=== PATIENT | female | born 1955 | race Caucasian/White ===

== ENCOUNTER 2021-03-07 11:05 | Inpatient (IN) ==
[2021-03-07] MEDS ORDERED: Naloxone 0.4 MG/ML INJ IVP PRN (16:21)
[2021-03-07] MEDS ORDERED: Dextrose Gel 15 GM/37.5 ML TUBE PO PRN ×2 (16:59)
[2021-03-07] MEDS ORDERED: *HR* Dextrose 50 % in Water (Vial) 50 ML VIAL IVP PRN (16:59)
[2021-03-07] MEDS ORDERED: D5% in Water 1,000 ML IVC PRN (16:59)
[2021-03-07] MEDS: Insulin LISPRO 300 UNITS/3 ML VIAL SUBQ SCH ×2 (17:45→21:15)
[2021-03-07] MEDS ORDERED: Fluticasone Propionate Nasal 50 MCG/SPRAY BOTTLE NS PRN (18:13)
[2021-03-07 18:36] LABS: Estimated Average Glucose 180 mg/dl; Hemoglobin A1C 7.9 %
[2021-03-07] MEDS: Azithromycin 250 MG TABLET PO SCH (18:43)
[2021-03-07] MEDS: *HR* Heparin 5,000 UNIT/ML VIAL SQ SCH (18:44)
[2021-03-07] MEDS: Nicotine 21 MG PATCH.TD24 TD SCH (18:44)
[2021-03-07] MEDS: Ipratropium/Albuterol Neb 3 ML IH SCH ×2 (19:26→23:10)
[2021-03-08 01:36] LABS: Basophils % 0.1 %; Hematocrit 38.1 % (35.3-44.9); Hemoglobin 11.6 g/dL (11.5-15.4); Immature Granulocytes % 1.2 % (0-4); Lymphocytes # 1.1 K/mcL (0.6-4.6); Lymphocytes % 6.6 %; Mean Corpuscular HGB Conc 30.4 g/dL (31.6-35.5); Mean Corpuscular Hemoglobin 27.5 pg (28.0-33.3); Mean Corpuscular Volume 90.3 fL (83.0-100.0); Mean Platelet Volume 11.8 fL (9.4-12.4); Monocytes # 1.3 K/mcL (0.0-1.3); Monocytes % 7.6 %; Neutrophils # 14.5 K/mcL (1.6-8.9); Platelet Count 249 K/mcL (140-400); Red Blood Count 4.22 M/mcL (3.82-4.97); Red Cell Distribution Width 14.8 % (11.5-14.5); Segmented Neutrophils % 84.5 %; White Blood Count 17.1 K/mcL (4.3-11.1)
[2021-03-08 01:55] LABS: Calcium 9.2 mg/dL (8.6-10.3); Potassium 5.7 mEq/L (3.5-5.1)
[2021-03-08] MEDS: Ipratropium/Albuterol Neb 3 ML IH SCH ×5 (03:40→23:28)
[2021-03-08] MEDS: *HR* Heparin 5,000 UNIT/ML VIAL SQ SCH ×2 (06:42→17:01)
[2021-03-08] MEDS ORDERED: Furosemide 40 MG/4 ML VIAL IVP ONE (08:17)
[2021-03-08] MEDS ORDERED: Furosemide 20 MG/2 ML VIAL IVP ONE (08:30)
[2021-03-08] MEDS: ARIPiprazole 10 MG TABLET PO SCH (08:33)
[2021-03-08] MEDS: predniSONE 20 MG TABLET PO SCH (08:34)
[2021-03-08] MEDS: Aspirin Enteric Coated 81 MG Tablet PO SCH (08:34)
[2021-03-08] MEDS: Azithromycin 250 MG TABLET PO SCH (08:34)
[2021-03-08] MEDS: atenoloL 50 MG TABLET PO SCH (08:34)
[2021-03-08] MEDS: Insulin LISPRO 300 UNITS/3 ML VIAL SUBQ SCH ×4 (08:35→19:59)
[2021-03-08] MEDS: Nicotine 21 MG PATCH.TD24 TD SCH (08:35)
[2021-03-08 08:37] LABS: Albumin 3.9 g/dL (3.5-5.7); Albumin/Globulin Ratio 1.3 (1.1-2.2); Bilirubin,Direct 0.1 mg/dL (0.0-0.2); Bilirubin,Indirect 0.4 mg/dL (0.0-1.0); Bilirubin,Total 0.5 mg/dL (0.3-1.0); Globulin 3.1 g/dL (2.4-3.5)
[2021-03-08] MEDS: (Vilazodone Hcl [Viibryd] 40 MG Tablet) PO SCH (08:43)
[2021-03-08 11:42] LABS: ABG Base Excess 10 mEq/L (-2 to 3); ABG HCO3 42 mEq/L (21-27); ABG Oxygen Saturation 91 % (95-98); ABG PCO2 95 mmHg (35-45); ABG PH 7.25 pH Units (7.32-7.45); ABG PO2 75 mmHg (85-104); ABG TCO2 45 mEq/L (20-26)
[2021-03-08] MEDS: SODIUM ZIRCONIUM CYCLOSILICATE 5 GM POWD.PACK PO SCH (11:57)
[2021-03-08 15:00] LABS: ABG Base Excess 11 mEq/L (-2 to 3); ABG HCO3 41 mEq/L (21-27); ABG Oxygen Saturation 95 % (95-98); ABG PCO2 83 mmHg (35-45); ABG PO2 88 mmHg (85-104); ABG TCO2 43 mEq/L (20-26); Blood Gas Modality BiLevel; Blood Gas Pressure Support 4 cm H2O
[2021-03-08] MEDS: amLODIPine 5 MG TABLET PO SCH (15:50)
[2021-03-08 17:59] LABS: Bilirubin,Urine Negative (Negative); Blood,Urine Negative (Negative); Clarity,Urine Clear (Clear); Color,Urine Light-Yellow (Yellow); Glucose,Urine (UA) Normal (Normal); Ketones,Urine Negative (Negative); Leukocyte Esterase,Urine Negative (Negative); Nitrite,Urine Negative (Negative); Protein,Urine 30 mg/dL (Neg-Trace); RBC,Urine 0-3 per hpf (0-3); Specific Gravity,Urine 1.017 (1.010-1.025); Squamous Epithelial Cell,Urine Few per hpf (None-Few); Urobilinogen,Urine Normal (Normal); WBC,Urine 0-3 per hpf (0-3)
[2021-03-09 02:46] LABS: Basophils % 0.1 %; Hematocrit 34.3 % (35.3-44.9); Hemoglobin 10.7 g/dL (11.5-15.4); Immature Granulocytes % 0.7 % (0-4); Lymphocytes # 1.3 K/mcL (0.6-4.6); Lymphocytes % 12.1 %; Mean Corpuscular HGB Conc 31.2 g/dL (31.6-35.5); Mean Corpuscular Hemoglobin 27.4 pg (28.0-33.3); Mean Corpuscular Volume 87.7 fL (83.0-100.0); Mean Platelet Volume 11.9 fL (9.4-12.4); Monocytes % 9.5 %; Neutrophils # 8.3 K/mcL (1.6-8.9); Platelet Count 206 K/mcL (140-400); Red Blood Count 3.91 M/mcL (3.82-4.97); Red Cell Distribution Width 14.7 % (11.5-14.5); Segmented Neutrophils % 77.6 %; White Blood Count 10.7 K/mcL (4.3-11.1)
[2021-03-09 03:05] LABS: Uric Acid 10.2 mg/dL (2.3-7.6)
[2021-03-09 03:06] LABS: Potassium 5.2 mEq/L (3.5-5.1)
[2021-03-09 03:20] LABS: Thyroid Stimulating Hormone 0.818 mcIU/mL (0.340-5.600)
[2021-03-09] MEDS: Ipratropium/Albuterol Neb 3 ML IH SCH ×6 (03:31→23:28)
[2021-03-09 03:32] LABS: Hepatitis B Surface Antigen Nonreactive (Nonreactive)
[2021-03-09 04:00] LABS: Hepatitis C Virus Antibody Nonreactive (Nonreactive)
[2021-03-09 04:01] LABS: Hepatitis B Core IgM Nonreactive (Nonreactive)
[2021-03-09 04:02] LABS: Hepatitis A Antibody IgM Nonreactive (Nonreactive)
[2021-03-09] MEDS: *HR* Heparin 5,000 UNIT/ML VIAL SQ SCH ×2 (05:22→16:49)
[2021-03-09] MEDS: Insulin LISPRO 300 UNITS/3 ML VIAL SUBQ SCH ×4 (07:02→21:02)
[2021-03-09] MEDS: Nicotine 21 MG PATCH.TD24 TD SCH (07:36)
[2021-03-09] MEDS: SODIUM ZIRCONIUM CYCLOSILICATE 5 GM POWD.PACK PO SCH (07:36)
[2021-03-09] MEDS: Aspirin Enteric Coated 81 MG Tablet PO SCH (07:37)
[2021-03-09] MEDS: Azithromycin 250 MG TABLET PO SCH (07:37)
[2021-03-09] MEDS: amLODIPine 5 MG TABLET PO SCH (07:37)
[2021-03-09] MEDS: ARIPiprazole 10 MG TABLET PO SCH (07:37)
[2021-03-09] MEDS: predniSONE 20 MG TABLET PO SCH (07:38)
[2021-03-09] MEDS: atenoloL 50 MG TABLET PO SCH (07:38)
[2021-03-09] MEDS: (Vilazodone Hcl [Viibryd] 40 MG Tablet) PO SCH (07:39)
[2021-03-09 08:29] LABS: ABG Base Excess 13 mEq/L (-2 to 3); ABG HCO3 44 mEq/L (21-27); ABG Oxygen Saturation 92 % (95-98); ABG PCO2 92 mmHg (35-45); ABG PH 7.28 pH Units (7.32-7.45); ABG PO2 77 mmHg (85-104); ABG TCO2 46 mEq/L (20-26)
[2021-03-09 12:01] LABS: ABG Base Excess 14 mEq/L (-2 to 3); ABG HCO3 43 mEq/L (21-27); ABG Oxygen Saturation 94 % (95-98); ABG PCO2 76 mmHg (35-45); ABG PH 7.36 pH Units (7.32-7.45); ABG PO2 76 mmHg (85-104); ABG TCO2 45 mEq/L (20-26); Blood Gas Modality AVAPS; Blood Gas VT 500 cc
[2021-03-09] MEDS: Benzonatate 100 MG CAPSULE PO PRN (20:47)
[2021-03-10 01:44] LABS: Basophils % 0.1 %; Eosinophils % 0.1 %; Hemoglobin 10.7 g/dL (11.5-15.4); Immature Granulocytes % 0.5 % (0-4); Lymphocytes # 1.3 K/mcL (0.6-4.6); Lymphocytes % 13.8 %; Mean Corpuscular HGB Conc 31.5 g/dL (31.6-35.5); Mean Corpuscular Hemoglobin 27.4 pg (28.0-33.3); Monocytes # 1.3 K/mcL (0.0-1.3); Monocytes % 13.1 %; Neutrophils # 6.9 K/mcL (1.6-8.9); Platelet Count 193 K/mcL (140-400); Red Blood Count 3.91 M/mcL (3.82-4.97); Red Cell Distribution Width 14.4 % (11.5-14.5); Segmented Neutrophils % 72.4 %; White Blood Count 9.5 K/mcL (4.3-11.1)
[2021-03-10 02:04] LABS: Potassium 4.7 mEq/L (3.5-5.1)
[2021-03-10] MEDS: Ipratropium/Albuterol Neb 3 ML IH SCH ×6 (03:43→23:48)
[2021-03-10] MEDS: *HR* Heparin 5,000 UNIT/ML VIAL SQ SCH ×2 (05:16→16:37)
[2021-03-10] MEDS: Insulin LISPRO 300 UNITS/3 ML VIAL SUBQ SCH ×4 (08:00→21:29)
[2021-03-10] MEDS: Aspirin Enteric Coated 81 MG Tablet PO SCH (08:01)
[2021-03-10] MEDS: predniSONE 20 MG TABLET PO SCH (08:01)
[2021-03-10] MEDS: atenoloL 50 MG TABLET PO SCH (08:01)
[2021-03-10] MEDS: Furosemide 40 MG/4 ML VIAL IVP SCH (08:01)
[2021-03-10] MEDS: ARIPiprazole 10 MG TABLET PO SCH (08:01)
[2021-03-10] MEDS: amLODIPine 5 MG TABLET PO SCH (08:01)
[2021-03-10] MEDS: SODIUM ZIRCONIUM CYCLOSILICATE 5 GM POWD.PACK PO SCH (08:02)
[2021-03-10] MEDS: Nicotine 21 MG PATCH.TD24 TD SCH (08:04)
[2021-03-10] MEDS: (Vilazodone Hcl [Viibryd] 40 MG Tablet) PO SCH (08:04)
[2021-03-10 08:11] LABS: Protein/Creatinine Ratio,Urine 1.46 mg/mg (0.00-0.20); Sodium, Urine 104.7 mEq/L
[2021-03-10] MEDS: Valsartan 80 MG TABLET PO SCH (11:01)
[2021-03-10] MEDS: Benzonatate 100 MG CAPSULE PO PRN ×2 (17:34→21:29)
[2021-03-10] MEDS: Gabapentin 300 MG CAPSULE PO SCH (17:34)
[2021-03-11 02:45] LABS: Hematocrit 34.2 % (35.3-44.9); Hemoglobin 10.5 g/dL (11.5-15.4); Mean Corpuscular HGB Conc 30.7 g/dL (31.6-35.5); Mean Corpuscular Hemoglobin 26.6 pg (28.0-33.3); Mean Corpuscular Volume 86.6 fL (83.0-100.0); Mean Platelet Volume 11.8 fL (9.4-12.4); Platelet Count 193 K/mcL (140-400); Red Blood Count 3.95 M/mcL (3.82-4.97); Red Cell Distribution Width 14.1 % (11.5-14.5); White Blood Count 8.5 K/mcL (4.3-11.1)
[2021-03-11 03:10] LABS: BUN/Creatinine Ratio 29 (6-26); Blood Urea Nitrogen 32 mg/dL (8-23); Calcium 8.7 mg/dL (8.6-10.3); Carbon Dioxide 41 mEq/L (23-29); Chloride 90 mEq/L (98-107); Glucose 170 mg/dL (70-105); Osmolality,Calculated 291 (280-300); Potassium 4.5 mEq/L (3.5-5.1); Sodium 135 mEq/L (136-145); eGFR For African Americans > 60 (> 60); eGFR For Non-African Americans 51 (> 60)
[2021-03-11] MEDS: Ipratropium/Albuterol Neb 3 ML IH SCH ×5 (04:16→19:49)
[2021-03-11] MEDS ORDERED: Acetaminophen 325 MG TABLET PO PRN (05:14)
[2021-03-11] MEDS: *HR* Heparin 5,000 UNIT/ML VIAL SQ SCH ×2 (05:27→17:17)
[2021-03-11] MEDS: Insulin LISPRO 300 UNITS/3 ML VIAL SUBQ SCH ×4 (07:37→21:36)
[2021-03-11] MEDS: Nicotine 21 MG PATCH.TD24 TD SCH (08:07)
[2021-03-11] MEDS: Furosemide 40 MG/4 ML VIAL IVP SCH ×2 (08:08→21:45)
[2021-03-11] MEDS: Gabapentin 300 MG CAPSULE PO SCH (08:08)
[2021-03-11] MEDS: ARIPiprazole 10 MG TABLET PO SCH (08:08)
[2021-03-11] MEDS: Valsartan 80 MG TABLET PO SCH (08:08)
[2021-03-11] MEDS: Aspirin Enteric Coated 81 MG Tablet PO SCH (08:08)
[2021-03-11] MEDS: atenoloL 50 MG TABLET PO SCH (08:08)
[2021-03-11] MEDS: predniSONE 20 MG TABLET PO SCH (08:08)
[2021-03-11] MEDS: SODIUM ZIRCONIUM CYCLOSILICATE 5 GM POWD.PACK PO SCH (08:09)
[2021-03-11] MEDS: (Vilazodone Hcl [Viibryd] 40 MG Tablet) PO SCH (08:09)
[2021-03-11 11:06] LABS: ABG Base Excess 14 mEq/L (-2 to 3); ABG HCO3 43 mEq/L (21-27); ABG Oxygen Saturation 91 % (95-98); ABG PCO2 79 mmHg (35-45); ABG PH 7.35 pH Units (7.32-7.45); ABG PO2 69 mmHg (85-104); ABG TCO2 45 mEq/L (20-26)
[2021-03-11] MEDS ORDERED: Valsartan 80 MG TABLET PO ONE (12:50)
[2021-03-11 19:11] LABS: Lambda Qnt Free Light Chains 20.89 mg/L (5.71-26.30)
[2021-03-12] MEDS: Ipratropium/Albuterol Neb 3 ML IH SCH ×5 (00:02→16:00)
[2021-03-12 05:04] LABS: Alpha 2 Globulin (PEP) 0.77 g/dL (0.48-1.05); Beta Globulin (PEP) 0.73 g/dL (0.48-1.10)
[2021-03-12] MEDS: *HR* Heparin 5,000 UNIT/ML VIAL SQ SCH (05:29)
[2021-03-12 05:48] LABS: Hematocrit 35.3 % (35.3-44.9); Mean Corpuscular HGB Conc 31.2 g/dL (31.6-35.5); Mean Corpuscular Hemoglobin 26.8 pg (28.0-33.3); Mean Corpuscular Volume 85.9 fL (83.0-100.0); Platelet Count 199 K/mcL (140-400); Red Blood Count 4.11 M/mcL (3.82-4.97); White Blood Count 8.6 K/mcL (4.3-11.1)
[2021-03-12 06:52] LABS: BUN/Creatinine Ratio 25 (6-26); Blood Urea Nitrogen 27 mg/dL (8-23); Carbon Dioxide 44 mEq/L (23-29); Chloride 88 mEq/L (98-107); Glucose 121 mg/dL (70-105); Osmolality,Calculated 290 (280-300); Potassium 4.1 mEq/L (3.5-5.1); Sodium 137 mEq/L (136-145); eGFR For African Americans > 60 (> 60); eGFR For Non-African Americans 52 (> 60)
[2021-03-12] MEDS: Insulin LISPRO 300 UNITS/3 ML VIAL SUBQ SCH (08:16)
[2021-03-12] MEDS ORDERED: Valsartan 80 MG TABLET PO SCH (09:00)
[2021-03-12] MEDS: Nicotine 21 MG PATCH.TD24 TD SCH (09:30)
[2021-03-12] MEDS: ARIPiprazole 10 MG TABLET PO SCH (09:35)
[2021-03-12] MEDS: Gabapentin 300 MG CAPSULE PO SCH (09:36)
[2021-03-12] MEDS: Aspirin Enteric Coated 81 MG Tablet PO SCH (09:37)
[2021-03-12] MEDS: predniSONE 20 MG TABLET PO SCH (09:38)
[2021-03-12] MEDS: atenoloL 50 MG TABLET PO SCH (09:39)
[2021-03-12] MEDS: Furosemide 40 MG/4 ML VIAL IVP SCH (09:42)
[2021-03-12 09:44] LABS: Kappa Qnt Free Light Chains 31.03 mg/L (3.30-19.40)
[2021-03-12 09:49] LABS: IFE Reflexed NOT DONE
[2021-03-12 10:50] VITALS: BP 163/94
== END 2021-03-12 15:45 | disposition home health service (06) | DRG 682 ==
LOC: 2NENU → SUATTDRO 17:05
PROVIDERS: ADMIT Internal Medicine; ATTEND Family Medicine

== ENCOUNTER 2021-05-12 14:26 | Inpatient (IN) ==
[2021-05-13] MEDS ORDERED: Ondansetron 4 MG/2 ML VIAL IVP PRN (05:10)
[2021-05-13] MEDS ORDERED: Naloxone 0.4 MG/ML INJ IVP PRN (05:10)
[2021-05-13] MEDS ORDERED: Ipratropium/Albuterol Neb 3 ML IH PRN (05:15)
[2021-05-13] MEDS ORDERED: Dextrose Gel 15 GM/37.5 ML TUBE PO PRN ×2 (05:18)
[2021-05-13] MEDS ORDERED: D5% in Water 1,000 ML IVC PRN (05:18)
[2021-05-13] MEDS ORDERED: *HR* Dextrose 50 % in Water (Vial) 50 ML VIAL IVP PRN (05:18)
[2021-05-13 06:06] LABS: ABG Base Excess 8 mEq/L (-2 to 3); ABG HCO3 38 mEq/L (21-27); ABG Oxygen Saturation 93 % (95-98); ABG PCO2 85 mmHg (35-45); ABG PH 7.25 pH Units (7.32-7.45); ABG PO2 80 mmHg (85-104); ABG TCO2 40 mEq/L (20-26); Blood Gas Modality AVAPS; Blood Gas VT 500 cc
[2021-05-13 06:58] LABS: Basophils % 0.4 %; Eosinophils % 0.2 %; Red Cell Distribution Width 15.7 % (11.5-14.5); Segmented Neutrophils % 80.4 %
[2021-05-13 06:59] LABS: Hematocrit 35.6 % (35.3-44.9); Hemoglobin 9.7 g/dL (11.5-15.4); Lymphocytes # 0.8 K/mcL (0.6-4.6); Mean Corpuscular HGB Conc 27.2 g/dL (31.6-35.5); Mean Corpuscular Hemoglobin 27.6 pg (28.0-33.3); Mean Corpuscular Volume 101.4 fL (83.0-100.0); Mean Platelet Volume 12.9 fL (9.4-12.4); Monocytes # 0.7 K/mcL (0.0-1.3); Neutrophils # 6.8 K/mcL (1.6-8.9); Platelet Count 147 K/mcL (140-400); Red Blood Count 3.51 M/mcL (3.82-4.97); White Blood Count 8.4 K/mcL (4.3-11.1)
[2021-05-13 07:12] LABS: Calcium 8.7 mg/dL (8.6-10.3); Potassium 5.9 mEq/L (3.5-5.1)
[2021-05-13 07:17] LABS: Troponin I 0.16 ng/mL (< 0.04)
[2021-05-13 07:35] LABS: Magnesium 1.4 mg/dL (1.6-2.6)
[2021-05-13] MEDS: *HR* Heparin 5,000 UNIT/ML VIAL SQ SCH ×3 (08:00→21:27)
[2021-05-13] MEDS ORDERED: Calcium Gluconate 1gm/50mL 1 GM/50 ML BAG IVPB ONE (09:24)
[2021-05-13] MEDS: Insulin LISPRO 300 UNITS/3 ML VIAL SUBQ SCH ×3 (09:39→17:34)
[2021-05-13 10:39] LABS: Troponin I 0.18 ng/mL (< 0.04)
[2021-05-13 11:02] LABS: Uric Acid 10.7 mg/dL (2.3-7.6)
[2021-05-13 12:01] LABS: Calcium 8.7 mg/dL (8.6-10.3); Potassium 5.8 mEq/L (3.5-5.1)
[2021-05-13 12:23] LABS: Hepatitis B Surface Antigen Nonreactive (Nonreactive)
[2021-05-13] MEDS: D10% in Water 500 ML IVC SCH (12:31)
[2021-05-13] MEDS ORDERED: Furosemide 40 MG/4 ML VIAL IVP ONE ×3 (12:34→17:18)
[2021-05-13] MEDS ORDERED: Albumin 25% 25gram/100mL 25 GM/100 ML IV.SOLN IVPB ONE (12:34)
[2021-05-13 12:52] LABS: Hepatitis C Virus Antibody Nonreactive (Nonreactive)
[2021-05-13 12:53] LABS: Hepatitis A Antibody IgM Nonreactive (Nonreactive); Hepatitis B Core IgM Nonreactive (Nonreactive)
[2021-05-13 13:35] LABS: Sodium, Urine 14.3 mEq/L
[2021-05-13 15:31] LABS: Calcium 8.8 mg/dL (8.6-10.3); Potassium 5.4 mEq/L (3.5-5.1)
[2021-05-13] MEDS: predniSONE 20 MG TABLET PO SCH (17:51)
[2021-05-13] MEDS: SODIUM ZIRCONIUM CYCLOSILICATE 5 GM POWD.PACK PO SCH (17:51)
[2021-05-13] MEDS: Acetaminophen 325 MG TABLET PO PRN (22:09)
[2021-05-13 23:00] LABS: Calcium 8.8 mg/dL (8.6-10.3); Potassium 5.9 mEq/L (3.5-5.1)
[2021-05-13 23:05] LABS: Troponin I 0.19 ng/mL (< 0.04)
[2021-05-14] MEDS: Insulin LISPRO 300 UNITS/3 ML VIAL SUBQ SCH ×4 (00:50→18:33)
[2021-05-14 02:22] LABS: Red Cell Distribution Width 15.4 % (11.5-14.5)
[2021-05-14 02:23] LABS: Hematocrit 31.4 % (35.3-44.9); Hemoglobin 9.3 g/dL (11.5-15.4); Mean Corpuscular HGB Conc 29.6 g/dL (31.6-35.5); Mean Corpuscular Hemoglobin 28.4 pg (28.0-33.3); Mean Platelet Volume 12.8 fL (9.4-12.4); Platelet Count 152 K/mcL (140-400); Red Blood Count 3.27 M/mcL (3.82-4.97); White Blood Count 9.7 K/mcL (4.3-11.1)
[2021-05-14 02:40] LABS: Calcium 8.8 mg/dL (8.6-10.3); Potassium 5.9 mEq/L (3.5-5.1)
[2021-05-14] MEDS: *HR* Heparin 5,000 UNIT/ML VIAL SQ SCH ×2 (06:04→13:19)
[2021-05-14] MEDS: SODIUM ZIRCONIUM CYCLOSILICATE 5 GM POWD.PACK PO SCH (08:01)
[2021-05-14] MEDS: predniSONE 20 MG TABLET PO SCH (08:01)
[2021-05-14] MEDS ORDERED: *HR* Heparin 10,000 UNIT/10 ML VIAL IV PRN (09:37)
[2021-05-14] MEDS ORDERED: 0.9 % Sodium Chloride 250 ML IVC PRN ×2 (09:37→14:42)
[2021-05-14] MEDS ORDERED: 0.9 % Sodium Chloride 1,000 ML PRIME SCH (09:45)
[2021-05-14 11:07] LABS: INR 1.2; Prothrombin Time 13.9 Seconds (9.4-12.1)
[2021-05-14] MEDS ORDERED: Lidocaine 1% 0 ML ONE (11:22)
[2021-05-14] MEDS: D10% in Water 500 ML IVC SCH ×3 (13:17→15:06)
[2021-05-14 17:43] LABS: ABG Base Excess 10 mEq/L (-2 to 3); ABG HCO3 36 mEq/L (21-27); ABG Oxygen Saturation 92 % (95-98); ABG PCO2 56 mmHg (35-45); ABG PH 7.42 pH Units (7.32-7.45); ABG PO2 63 mmHg (85-104); ABG TCO2 38 mEq/L (20-26)
[2021-05-14] MEDS ORDERED: Haloperidol Lactate 5 MG/ML VIAL IVP PRN (23:37)
[2021-05-15] MEDS: *HR* Heparin 5,000 UNIT/ML VIAL SQ SCH ×2 (00:10→05:27)
[2021-05-15] MEDS: Insulin LISPRO 300 UNITS/3 ML VIAL SUBQ SCH ×5 (00:29→20:33)
[2021-05-15 01:52] LABS: Calcium 9.1 mg/dL (8.6-10.3); Potassium 4.6 mEq/L (3.5-5.1)
[2021-05-15 02:00] LABS: Hematocrit 27.1 % (35.3-44.9); Mean Corpuscular HGB Conc 29.5 g/dL (31.6-35.5); Mean Corpuscular Hemoglobin 27.3 pg (28.0-33.3); Mean Corpuscular Volume 92.5 fL (83.0-100.0); Mean Platelet Volume 12.9 fL (9.4-12.4); Red Blood Count 2.93 M/mcL (3.82-4.97); White Blood Count 8.2 K/mcL (4.3-11.1)
[2021-05-15] MEDS: predniSONE 20 MG TABLET PO SCH (11:04)
[2021-05-15] MEDS: SODIUM ZIRCONIUM CYCLOSILICATE 5 GM POWD.PACK PO SCH (11:04)
[2021-05-15] MEDS ORDERED: Perflutren Lipid Microsphere 1.3 ML in 0.9 % Sodium Chloride 8.7 ML IVP PRN (11:29)
[2021-05-15] MEDS ORDERED: *HR* Heparin 10,000 UNIT/10 ML VIAL IV PRN (14:42)
[2021-05-15] MEDS ORDERED: 0.9 % Sodium Chloride 1,000 ML PRIME SCH (14:45)
[2021-05-15 21:58] LABS: Lambda Qnt Free Light Chains 40.85 mg/L (5.71-26.30)
[2021-05-15] MEDS ORDERED: Ipratropium/Albuterol Neb 3 ML IH PRN (23:13)
[2021-05-16 02:08] LABS: Hemoglobin 8.4 g/dL (11.5-15.4); Mean Corpuscular Hemoglobin 27.6 pg (28.0-33.3); Mean Corpuscular Volume 92.1 fL (83.0-100.0); Mean Platelet Volume 12.4 fL (9.4-12.4); Platelet Count 161 K/mcL (140-400); Red Blood Count 3.04 M/mcL (3.82-4.97); Red Cell Distribution Width 14.9 % (11.5-14.5)
[2021-05-16 02:28] LABS: % Iron Saturation 4 % (15-50); Calcium 8.9 mg/dL (8.6-10.3); Iron 13 mcg/dL (50-170); Potassium 4.5 mEq/L (3.5-5.1); Transferrin 211 mg/dL (203-362)
[2021-05-16] MEDS: Insulin LISPRO 300 UNITS/3 ML VIAL SUBQ SCH ×4 (07:24→21:07)
[2021-05-16] MEDS: atenoloL 50 MG TABLET PO SCH (07:42)
[2021-05-16] MEDS: SODIUM ZIRCONIUM CYCLOSILICATE 5 GM POWD.PACK PO SCH (07:43)
[2021-05-16] MEDS: ARIPiprazole 10 MG TABLET PO SCH (07:43)
[2021-05-16] MEDS: Aspirin Enteric Coated 81 MG Tablet PO SCH (07:43)
[2021-05-16] MEDS: hydrALAZINE 25 MG TABLET PO SCH ×3 (07:43→21:14)
[2021-05-16] MEDS ORDERED: Valsartan 80 MG TABLET PO SCH (09:00)
[2021-05-16 11:28] LABS: Kappa Qnt Free Light Chains 101.37 mg/L (3.30-19.40)
[2021-05-16] MEDS ORDERED: Ferumoxytol 510 MG in 0.9 % Sodium Chloride 100 ML IVPB ONE (12:34)
[2021-05-16] MEDS: Gabapentin 300 MG CAPSULE PO SCH ×2 (13:13→21:04)
[2021-05-17 01:34] LABS: Alpha 2 Globulin (PEP) 0.86 g/dL (0.48-1.05); Beta Globulin (PEP) 0.84 g/dL (0.48-1.10)
[2021-05-17 02:19] LABS: Eosinophils % 0.3 %; Immature Granulocytes % 0.3 % (0-4)
[2021-05-17 02:21] LABS: Basophils % 0.5 %; Hematocrit 30.3 % (35.3-44.9); Hemoglobin 9.1 g/dL (11.5-15.4); Lymphocytes # 1.2 K/mcL (0.6-4.6); Lymphocytes % 18.6 %; Mean Corpuscular Volume 93.2 fL (83.0-100.0); Mean Platelet Volume 12.3 fL (9.4-12.4); Monocytes # 0.9 K/mcL (0.0-1.3); Monocytes % 14.4 %; Neutrophils # 4.2 K/mcL (1.6-8.9); Platelet Count 160 K/mcL (140-400); Red Blood Count 3.25 M/mcL (3.82-4.97); Segmented Neutrophils % 65.9 %; White Blood Count 6.4 K/mcL (4.3-11.1)
[2021-05-17 02:35] LABS: Calcium 8.9 mg/dL (8.6-10.3); Potassium 4.3 mEq/L (3.5-5.1)
[2021-05-17] MEDS: Insulin LISPRO 300 UNITS/3 ML VIAL SUBQ SCH ×4 (07:54→21:39)
[2021-05-17] MEDS: Aspirin Enteric Coated 81 MG Tablet PO SCH (08:23)
[2021-05-17] MEDS: SODIUM ZIRCONIUM CYCLOSILICATE 5 GM POWD.PACK PO SCH (08:23)
[2021-05-17] MEDS: hydrALAZINE 25 MG TABLET PO SCH ×3 (08:23→21:13)
[2021-05-17] MEDS: ARIPiprazole 10 MG TABLET PO SCH (08:23)
[2021-05-17] MEDS: atenoloL 50 MG TABLET PO SCH (08:23)
[2021-05-17] MEDS: Gabapentin 300 MG CAPSULE PO SCH ×2 (08:23→21:12)
[2021-05-17 11:09] LABS: IFE Reflexed NOT DONE
[2021-05-17] MEDS: Acetaminophen 325 MG TABLET PO PRN (21:12)
[2021-05-18 05:17] LABS: Basophils % 0.4 %; Eosinophils % 0.7 %; Hematocrit 28.7 % (35.3-44.9); Hemoglobin 8.6 g/dL (11.5-15.4); Immature Granulocytes % 0.5 % (0-4); Lymphocytes % 18.6 %; Mean Corpuscular Hemoglobin 27.9 pg (28.0-33.3); Mean Corpuscular Volume 93.2 fL (83.0-100.0); Monocytes # 0.7 K/mcL (0.0-1.3); Monocytes % 12.8 %; Neutrophils # 3.7 K/mcL (1.6-8.9); Platelet Count 152 K/mcL (140-400); Red Blood Count 3.08 M/mcL (3.82-4.97); Red Cell Distribution Width 14.9 % (11.5-14.5); White Blood Count 5.5 K/mcL (4.3-11.1)
[2021-05-18 05:31] LABS: Potassium 4.5 mEq/L (3.5-5.1)
[2021-05-18] MEDS: Insulin LISPRO 300 UNITS/3 ML VIAL SUBQ SCH ×4 (08:28→20:28)
[2021-05-18] MEDS: atenoloL 50 MG TABLET PO SCH (09:18)
[2021-05-18] MEDS: SODIUM ZIRCONIUM CYCLOSILICATE 5 GM POWD.PACK PO SCH (09:18)
[2021-05-18] MEDS: Gabapentin 300 MG CAPSULE PO SCH ×2 (09:18→20:25)
[2021-05-18] MEDS: Aspirin Enteric Coated 81 MG Tablet PO SCH (09:18)
[2021-05-18] MEDS: hydrALAZINE 25 MG TABLET PO SCH ×3 (09:18→20:29)
[2021-05-18] MEDS: ARIPiprazole 10 MG TABLET PO SCH (09:18)
[2021-05-18] MEDS: Nicotine 21 MG PATCH.TD24 TD SCH (12:37)
[2021-05-18] MEDS: *HR* Heparin 5,000 UNIT/ML VIAL SQ SCH ×2 (16:25→20:24)
[2021-05-19] MEDS: *HR* Heparin 5,000 UNIT/ML VIAL SQ SCH (05:07)
[2021-05-19 06:25] LABS: Basophils % 0.3 %; Eosinophils % 1.2 %; Immature Granulocytes % 0.7 % (0-4); Red Blood Count 3.17 M/mcL (3.82-4.97)
[2021-05-19 06:26] LABS: Eosinophils # 0.1 K/mcL (0.0-0.6); Hemoglobin 8.9 g/dL (11.5-15.4); Lymphocytes # 1.1 K/mcL (0.6-4.6); Lymphocytes % 19.1 %; Mean Corpuscular HGB Conc 29.7 g/dL (31.6-35.5); Mean Corpuscular Hemoglobin 28.1 pg (28.0-33.3); Mean Corpuscular Volume 94.6 fL (83.0-100.0); Mean Platelet Volume 12.3 fL (9.4-12.4); Monocytes # 0.7 K/mcL (0.0-1.3); Monocytes % 11.2 %; Neutrophils # 3.9 K/mcL (1.6-8.9); Platelet Count 147 K/mcL (140-400); Segmented Neutrophils % 67.5 %; White Blood Count 5.8 K/mcL (4.3-11.1)
[2021-05-19 06:44] LABS: Calcium 9.1 mg/dL (8.6-10.3); Potassium 4.3 mEq/L (3.5-5.1)
[2021-05-19 07:26] VITALS: O2SAT 91
[2021-05-19] MEDS: atenoloL 50 MG TABLET PO SCH (09:30)
[2021-05-19] MEDS: ARIPiprazole 10 MG TABLET PO SCH (09:30)
[2021-05-19] MEDS: Nicotine 21 MG PATCH.TD24 TD SCH (09:30)
[2021-05-19] MEDS: Gabapentin 300 MG CAPSULE PO SCH (09:30)
[2021-05-19] MEDS: SODIUM ZIRCONIUM CYCLOSILICATE 5 GM POWD.PACK PO SCH (09:30)
[2021-05-19] MEDS: Aspirin Enteric Coated 81 MG Tablet PO SCH (09:30)
[2021-05-19] MEDS: hydrALAZINE 25 MG TABLET PO SCH ×2 (09:30→14:47)
[2021-05-19] MEDS: Insulin LISPRO 300 UNITS/3 ML VIAL SUBQ SCH ×2 (09:30→12:17)
[2021-05-19 12:04] VITALS: BP 131/68; PULSE 61; TEMP 98.5
[2021-05-19 12:11] LABS: Total Volume 24 Hour,Urine 1.24 Liters (0.60-1.60)
[2021-05-19 12:23] LABS: Protein/Creatinine Ratio,Urine 0.34 mg/mg (0.00-0.20); Sodium, Urine 10.3 mEq/L
[2021-05-21 19:59] LABS: Urine Collection Volume NOT PROVIDED mL
== END 2021-05-19 16:55 | disposition home or self-care (01) | DRG 280 ==
LOC: 2NNU → SUATTDRO 05-13 14:37 → 2ANU 05-16 13:26
PROVIDERS: ADMIT Pharmacist; ATTEND Internal Medicine

== ENCOUNTER 2021-05-26 19:46 | Inpatient (IN) ==
[2021-05-27] MEDS ORDERED: Naloxone 0.4 MG/ML INJ IVP PRN (02:43)
[2021-05-27] MEDS ORDERED: *HR* Dextrose 50 % in Water (Vial) 50 ML VIAL ONE (02:49)
[2021-05-27] MEDS ORDERED: FentaNYL (PF) 1,000 MCG/100 ML IV.SOLN IVC SCH (03:00)
[2021-05-27] MEDS: *HR* Dextrose 50 % in Water (Vial) 50 ML VIAL IVP PRN ×5 (03:00→23:40)
[2021-05-27] MEDS ORDERED: Artificial Tears SOLN 15 ML BOTTLE BOTH EYES PRN (03:12)
[2021-05-27] MEDS: Nystatin POWDER 30 GM BOTTLE TP SCH ×4 (03:12→22:11)
[2021-05-27] MEDS ORDERED: Dextrose Gel 15 GM/37.5 ML TUBE PO PRN ×2 (03:19)
[2021-05-27] MEDS ORDERED: D5% in Water 1,000 ML IVC PRN (03:19)
[2021-05-27 04:30] LABS: Basophils % 0.4 %; Eosinophils # 0.1 K/mcL (0.0-0.6); Eosinophils % 0.6 %; Hematocrit 31.6 % (35.3-44.9); Hemoglobin 9.5 g/dL (11.5-15.4); Immature Granulocytes % 1.5 % (0-4); Mean Corpuscular HGB Conc 30.1 g/dL (31.6-35.5); Mean Corpuscular Hemoglobin 28.4 pg (28.0-33.3); Mean Corpuscular Volume 94.6 fL (83.0-100.0); Mean Platelet Volume 12.7 fL (9.4-12.4); Monocytes # 0.9 K/mcL (0.0-1.3); Monocytes % 9.1 %; Neutrophils # 7.8 K/mcL (1.6-8.9); Nucleated Red Blood Cells 0.2 /100 WBC (0); Platelet Count 192 K/mcL (140-400); Red Blood Count 3.34 M/mcL (3.82-4.97); Red Cell Distribution Width 17.8 % (11.5-14.5); Segmented Neutrophils % 78.4 %; White Blood Count 9.9 K/mcL (4.3-11.1)
[2021-05-27 04:36] LABS: INR 1.2
[2021-05-27 04:40] LABS: VBG Ionized Calcium 1.19 mmol/L (1.15-1.35)
[2021-05-27 04:42] LABS: ABG Base Excess 5 mEq/L (-2 to 3); ABG HCO3 33 mEq/L (21-27); ABG Oxygen Saturation 92 % (95-98); ABG PCO2 63 mmHg (35-45); ABG PH 7.32 pH Units (7.32-7.45); ABG PO2 70 mmHg (85-104); ABG TCO2 35 mEq/L (20-26); Blood Gas VT 450 cc
[2021-05-27 04:49] LABS: Albumin 3.3 g/dL (3.5-5.7); Albumin/Globulin Ratio 1.2 (1.1-2.2); Bilirubin,Direct 0.1 mg/dL (0.0-0.2); Bilirubin,Indirect 0.7 mg/dL (0.0-1.0); Bilirubin,Total 0.8 mg/dL (0.3-1.0); Calcium 8.8 mg/dL (8.6-10.3); Globulin 2.7 g/dL (2.4-3.5); Magnesium 1.7 mg/dL (1.6-2.6); Phosphorous 4.7 mg/dL (2.7-4.5); Potassium 4.7 mEq/L (3.5-5.1)
[2021-05-27] MEDS: Artificial Tears SOLN 15 ML BOTTLE BOTH EYES SCH ×6 (05:07→23:40)
[2021-05-27] MEDS: FentaNYL (PF) 1,000 MCG/100 ML IV.SOLN IVC SCH ×2 (05:14→17:15)
[2021-05-27] MEDS ORDERED: Perflutren Lipid Microsphere 1.3 ML in 0.9 % Sodium Chloride 8.7 ML IVP PRN (05:57)
[2021-05-27] MEDS: *HR* Heparin 5,000 UNIT/ML VIAL SQ SCH ×3 (06:15→22:41)
[2021-05-27] MEDS ORDERED: Furosemide 40 MG/4 ML VIAL IVP ONE (06:20)
[2021-05-27] MEDS ORDERED: Calcium Gluconate 1gm/50mL 1 GM/50 ML BAG IVPB PRN (07:33)
[2021-05-27] MEDS: Piperacillin/Tazobactam 3.375 GM in 0.9 % Sodium Chloride Mini Bag 100 ML IVPB SCH ×3 (07:34→20:48)
[2021-05-27] MEDS: Chlorhexidine Rinse 15 ML MOUTHWASH MM SCH ×2 (07:34→19:45)
[2021-05-27] MEDS: Pantoprazole 40 MG VIAL IVP SCH (07:34)
[2021-05-27 08:44] LABS: Basophils % 0.3 %; Eosinophils % 0.3 %; Hematocrit 30.6 % (35.3-44.9); Hemoglobin 9.2 g/dL (11.5-15.4); Immature Granulocytes % 1.2 % (0-4); Lymphocytes # 0.7 K/mcL (0.6-4.6); Lymphocytes % 6.8 %; Mean Corpuscular HGB Conc 30.1 g/dL (31.6-35.5); Mean Corpuscular Hemoglobin 28.3 pg (28.0-33.3); Mean Corpuscular Volume 94.2 fL (83.0-100.0); Mean Platelet Volume 12.9 fL (9.4-12.4); Monocytes % 9.6 %; Neutrophils # 8.2 K/mcL (1.6-8.9); Nucleated Red Blood Cells 0.5 /100 WBC (0); Platelet Count 193 K/mcL (140-400); Red Blood Count 3.25 M/mcL (3.82-4.97); Segmented Neutrophils % 81.8 %; White Blood Count 10.1 K/mcL (4.3-11.1)
[2021-05-27 09:04] LABS: Calcium 8.6 mg/dL (8.6-10.3); Potassium 4.8 mEq/L (3.5-5.1)
[2021-05-27] MEDS ORDERED: 0.9 % Sodium Chloride 1,000 ML ONE (09:08)
[2021-05-27] MEDS ORDERED: Furosemide 80 MG in 0.9 % Sodium Chloride 50 ML IVPB ONE (12:50)
[2021-05-27 12:55] LABS: Amorphous Sediment,Urine Few per hpf (None-Few); Bacteria,Urine Few per hpf (None-Few); Bilirubin,Urine Negative (Negative); Blood,Urine Large (Negative); Clarity,Urine Turbid (Clear); Color,Urine Yellow (Yellow); Glucose,Urine (UA) Normal (Normal); Hyaline Casts,Urine Moderate per lpf (None Seen); Ketones,Urine Negative (Negative); Leukocyte Esterase,Urine Large (Negative); Mucus,Urine Few per lpf (None-Few); Nitrite,Urine Negative (Negative); PH,Urine 5.5 pH Units (5.0-8.0); Protein,Urine 70 mg/dL (Neg-Trace); RBC,Urine TNTC per hpf (0-3); Specific Gravity,Urine 1.022 (1.010-1.025); Squamous Epithelial Cell,Urine Few per hpf (None-Few); Urobilinogen,Urine Normal (Normal); WBC,Urine 30-50 per hpf (0-3)
[2021-05-27 15:53] LABS: Thyroid Stimulating Hormone 2.624 mcIU/mL (0.340-5.600); Troponin I 0.12 ng/mL (< 0.04)
[2021-05-27] MEDS: Insulin LISPRO 300 UNITS/3 ML VIAL SUBQ SCH (17:04)
[2021-05-27] MEDS ORDERED: Glucagon, Human Recombinant 12 MG in 0.9 % Sodium Chloride 238 ML IVC SCH (19:30)
[2021-05-27] MEDS: Scopolamine Patch 1.5 MG PATCH.TD72 TD SCH (23:40)
[2021-05-28] MEDS: Insulin LISPRO 300 UNITS/3 ML VIAL SUBQ SCH ×5 (00:05→23:15)
[2021-05-28] MEDS: FentaNYL (PF) 1,000 MCG/100 ML IV.SOLN IVC SCH ×4 (03:15→22:00)
[2021-05-28] MEDS: Artificial Tears SOLN 15 ML BOTTLE BOTH EYES SCH ×6 (03:27→23:12)
[2021-05-28] MEDS: *HR* Dextrose 50 % in Water (Vial) 50 ML VIAL IVP PRN ×2 (04:15→07:56)
[2021-05-28 04:21] LABS: VBG Ionized Calcium 1.16 mmol/L (1.15-1.35)
[2021-05-28 04:25] LABS: ABG Base Excess 5 mEq/L (-2 to 3); ABG HCO3 31 mEq/L (21-27); ABG Oxygen Saturation 88 % (95-98); ABG PCO2 51 mmHg (35-45); ABG PH 7.39 pH Units (7.32-7.45); ABG PO2 57 mmHg (85-104); ABG TCO2 32 mEq/L (20-26); Blood Gas VT 380 cc
[2021-05-28] MEDS ORDERED: Norepinephrine 4 MG/254 ML IV.SOLN IVC SCH (04:30)
[2021-05-28 04:45] LABS: Magnesium 1.9 mg/dL (1.6-2.6); Phosphorous 4.9 mg/dL (2.7-4.5)
[2021-05-28] MEDS: *HR* Heparin 5,000 UNIT/ML VIAL SQ SCH ×3 (05:59→20:32)
[2021-05-28 07:03] LABS: Basophils % 0.3 %; Eosinophils % 0.3 %; Hematocrit 28.5 % (35.3-44.9); Hemoglobin 8.9 g/dL (11.5-15.4); Immature Granulocytes % 0.8 % (0-4); Mean Corpuscular HGB Conc 31.2 g/dL (31.6-35.5); Mean Corpuscular Hemoglobin 28.9 pg (28.0-33.3); Mean Corpuscular Volume 92.5 fL (83.0-100.0); Mean Platelet Volume 12.3 fL (9.4-12.4); Monocytes # 1.1 K/mcL (0.0-1.3); Monocytes % 11.6 %; Neutrophils # 7.5 K/mcL (1.6-8.9); Platelet Count 183 K/mcL (140-400); Red Blood Count 3.08 M/mcL (3.82-4.97); Red Cell Distribution Width 18.1 % (11.5-14.5); White Blood Count 9.7 K/mcL (4.3-11.1)
[2021-05-28 07:20] LABS: Calcium 8.4 mg/dL (8.6-10.3); Potassium 4.6 mEq/L (3.5-5.1)
[2021-05-28] MEDS: Pantoprazole 40 MG VIAL IVP SCH (07:34)
[2021-05-28] MEDS: Chlorhexidine Rinse 15 ML MOUTHWASH MM SCH ×2 (07:34→20:15)
[2021-05-28] MEDS: Nystatin POWDER 30 GM BOTTLE TP SCH ×3 (07:35→20:15)
[2021-05-28] MEDS: Piperacillin/Tazobactam 3.375 GM in 0.9 % Sodium Chloride Mini Bag 100 ML IVPB SCH ×2 (07:35→20:15)
[2021-05-28] MEDS: D10% in Water 500 ML IVC SCH ×2 (09:36→19:52)
[2021-05-28] MEDS ORDERED: *HR* Heparin 5,000 UNIT/ML VIAL IVP PRN (09:47)
[2021-05-28] MEDS ORDERED: 0.9 % Sodium Chloride 1,000 ML PRIME ONE ×2 (09:47)
[2021-05-28] MEDS ORDERED: *HR* Alteplase (Cathflo) 2 MG VIAL IVP PRN (09:47)
[2021-05-28] MEDS ORDERED: Albumin Human 5% 12.5 GM/250 ML IV.SOLN IVC SCH (10:45)
[2021-05-28] MEDS ORDERED: 0.9 % Sodium Chloride 500 ML ONE (12:10)
[2021-05-28] MEDS ORDERED: *HR* Heparin 5,000 UNIT/ML VIAL ONE (13:46)
[2021-05-28] MEDS: PrismaSATE BGK 4/2.5 5,000 ML CRRT SCH ×4 (15:20→20:12)
[2021-05-28] MEDS ORDERED: *HR* Atropine Sulfate 1 MG/10 ML SYRINGE ONE (15:44)
[2021-05-28] MEDS: Norepinephrine 8 MG/258 ML IV.SOLN IVC SCH (15:55)
[2021-05-28] MEDS: 0.9 % Sodium Chloride 1,000 ML PRIME SCH ×5 (17:15→23:11)
[2021-05-28] MEDS ORDERED: *HR* Atropine Sulfate 1 MG/10 ML SYRINGE IVP ONE (20:39)
[2021-05-28] MEDS ORDERED: 0.9 % Sodium Chloride 1,000 ML ONE (21:15)
[2021-05-28] MEDS ORDERED: *HR* Midazolam HCl 5 MG/5 ML VIAL IVP ONE ×2 (22:16→22:30)
[2021-05-28 22:51] LABS: ABG Base Excess 1 mEq/L (-2 to 3); ABG HCO3 29 mEq/L (21-27); ABG Oxygen Saturation 81 % (95-98); ABG PCO2 58 mmHg (35-45); ABG PO2 51 mmHg (85-104); ABG TCO2 31 mEq/L (20-26); Blood Gas VT 380 cc
[2021-05-28] MEDS ORDERED: *HR* Midazolam HCl 2 MG/2 ML VIAL IVP ONE (22:53)
[2021-05-28] MEDS ORDERED: Furosemide 40 MG/4 ML VIAL IVP ONE (23:02)
[2021-05-28] MEDS: Cisatracurium 200 MG in 0.9 % Sodium Chloride 180 ML IVC SCH (23:28)
[2021-05-29] MEDS: D10% in Water 500 ML IVC SCH ×2 (01:40→19:48)
[2021-05-29 03:21] LABS: Basophils # 0.1 K/mcL (0.0-0.2); Basophils % 0.5 %; Eosinophils # 0.1 K/mcL (0.0-0.6); Eosinophils % 1.1 %; Hematocrit 31.8 % (35.3-44.9); Hemoglobin 9.9 g/dL (11.5-15.4); Immature Granulocytes % 0.9 % (0-4); Lymphocytes # 0.8 K/mcL (0.6-4.6); Lymphocytes % 8.3 %; Mean Corpuscular HGB Conc 31.1 g/dL (31.6-35.5); Mean Corpuscular Hemoglobin 28.2 pg (28.0-33.3); Mean Corpuscular Volume 90.6 fL (83.0-100.0); Mean Platelet Volume 12.3 fL (9.4-12.4); Monocytes % 10.9 %; Neutrophils # 7.2 K/mcL (1.6-8.9); Platelet Count 178 K/mcL (140-400); Red Blood Count 3.51 M/mcL (3.82-4.97); Red Cell Distribution Width 17.2 % (11.5-14.5); Segmented Neutrophils % 78.3 %; White Blood Count 9.2 K/mcL (4.3-11.1)
[2021-05-29 03:40] LABS: Calcium 8.5 mg/dL (8.6-10.3); Phosphorous 4.5 mg/dL (2.7-4.5); Potassium 4.5 mEq/L (3.5-5.1)
[2021-05-29 04:07] LABS: ABG Base Excess 4 mEq/L (-2 to 3); ABG HCO3 30 mEq/L (21-27); ABG Oxygen Saturation 89 % (95-98); ABG PCO2 52 mmHg (35-45); ABG PH 7.37 pH Units (7.32-7.45); ABG PO2 60 mmHg (85-104); ABG TCO2 31 mEq/L (20-26); Blood Gas VT 380 cc
[2021-05-29] MEDS: FentaNYL (PF) 2,500 MCG/50 ML IV.SOLN IVC SCH ×2 (05:00→13:36)
[2021-05-29] MEDS: Artificial Tears SOLN 15 ML BOTTLE BOTH EYES SCH ×6 (05:00→23:35)
[2021-05-29] MEDS: *HR* Heparin 5,000 UNIT/ML VIAL SQ SCH ×3 (05:00→21:22)
[2021-05-29] MEDS: Insulin LISPRO 300 UNITS/3 ML VIAL SUBQ SCH ×4 (05:52→23:35)
[2021-05-29] MEDS: Furosemide 240 MG in 0.9 % Sodium Chloride 96 ML IVC SCH (05:52)
[2021-05-29] MEDS: Chlorhexidine Rinse 15 ML MOUTHWASH MM SCH ×2 (08:45→19:49)
[2021-05-29] MEDS: Piperacillin/Tazobactam 3.375 GM in 0.9 % Sodium Chloride Mini Bag 100 ML IVPB SCH ×2 (08:45→19:49)
[2021-05-29] MEDS: Pantoprazole 40 MG VIAL IVP SCH (08:46)
[2021-05-29] MEDS: Nystatin POWDER 30 GM BOTTLE TP SCH ×3 (08:46→19:49)
[2021-05-29] MEDS: Cisatracurium 200 MG in 0.9 % Sodium Chloride 180 ML IVC SCH ×2 (09:00→22:50)
[2021-05-29] MEDS ORDERED: Calcium Chloride 1,000 MG in 0.9 % Sodium Chloride 100 ML IVPB ONE (11:00)
[2021-05-29 17:57] LABS: Adenovirus Not Detected (Not Detect); Bordetella Pertussis Not Detected (Not Detect); Chlamydophila pneumoniae Not Detected (Not Detect); Coronavirus 229E Not Detected (Not Detect); Coronavirus HKU1 Not Detected (Not Detect); Coronavirus NL63 Not Detected (Not Detect); Coronavirus OC43 Not Detected (Not Detect); Human Metapneumovirus Not Detected (Not Detect); Human Rhinovirus/Enterovirus Not Detected (Not Detect); Influenza A Subtype 2009 H1 Not Detected (Not Detect); Influenza B Not Detected (Not Detect); Mycoplasma pneumoniae Not Detected (Not Detect); Parainfluenza Virus 1 Not Detected (Not Detect); Parainfluenza Virus 2 Not Detected (Not Detect); Parainfluenza Virus 3 Not Detected (Not Detect); Parainfluenza Virus 4 Not Detected (Not Detect); Respiratory Syncytial Virus Not Detected (Not Detect); SARS-CoV-2 Not Detected (Not Detect)
[2021-05-29] MEDS: PrismaSATE BGK 4/2.5 5,000 ML CRRT SCH ×2 (19:48)
[2021-05-29] MEDS: Norepinephrine 8 MG/258 ML IV.SOLN IVC SCH ×2 (19:48→20:31)
[2021-05-29 20:41] LABS: VBG Ionized Calcium 1.18 mmol/L (1.15-1.35)
[2021-05-29 20:59] LABS: Calcium 8.5 mg/dL (8.6-10.3); Magnesium 1.8 mg/dL (1.6-2.6); Phosphorous 5.5 mg/dL (2.7-4.5); Potassium 4.6 mEq/L (3.5-5.1)
[2021-05-30] MEDS: D10% in Water 500 ML IVC SCH ×3 (00:27→20:44)
[2021-05-30] MEDS: FentaNYL (PF) 2,500 MCG/50 ML IV.SOLN IVC SCH ×2 (03:01→18:38)
[2021-05-30] MEDS: Artificial Tears SOLN 15 ML BOTTLE BOTH EYES SCH ×6 (03:02→23:48)
[2021-05-30 03:37] LABS: Basophils % 0.3 %; Eosinophils # 0.1 K/mcL (0.0-0.6); Eosinophils % 1.2 %; Hematocrit 33.4 % (35.3-44.9); Hemoglobin 10.5 g/dL (11.5-15.4); Immature Granulocytes % 0.6 % (0-4); Lymphocytes # 0.8 K/mcL (0.6-4.6); Lymphocytes % 8.5 %; Mean Corpuscular HGB Conc 31.4 g/dL (31.6-35.5); Mean Corpuscular Hemoglobin 28.1 pg (28.0-33.3); Mean Corpuscular Volume 89.3 fL (83.0-100.0); Mean Platelet Volume 12.2 fL (9.4-12.4); Neutrophils # 7.1 K/mcL (1.6-8.9); Platelet Count 175 K/mcL (140-400); Red Blood Count 3.74 M/mcL (3.82-4.97); Red Cell Distribution Width 16.9 % (11.5-14.5); Segmented Neutrophils % 78.4 %
[2021-05-30 03:47] LABS: VBG Ionized Calcium 1.16 mmol/L (1.15-1.35)
[2021-05-30 03:55] LABS: Phosphorous 5.8 mg/dL (2.7-4.5)
[2021-05-30 03:59] LABS: Calcium 8.9 mg/dL (8.6-10.3); Potassium 4.8 mEq/L (3.5-5.1)
[2021-05-30 04:49] LABS: ABG Base Excess 2 mEq/L (-2 to 3); ABG HCO3 28 mEq/L (21-27); ABG Oxygen Saturation 92 % (95-98); ABG PCO2 49 mmHg (35-45); ABG PH 7.36 pH Units (7.32-7.45); ABG PO2 68 mmHg (85-104); ABG TCO2 29 mEq/L (20-26); Blood Gas VT 380 cc
[2021-05-30] MEDS: Insulin LISPRO 300 UNITS/3 ML VIAL SUBQ SCH ×4 (05:35→23:52)
[2021-05-30] MEDS: *HR* Heparin 5,000 UNIT/ML VIAL SQ SCH ×3 (05:35→20:44)
[2021-05-30] MEDS: Piperacillin/Tazobactam 3.375 GM in 0.9 % Sodium Chloride Mini Bag 100 ML IVPB SCH ×2 (08:36→20:43)
[2021-05-30] MEDS: Nystatin POWDER 30 GM BOTTLE TP SCH ×3 (08:36→20:44)
[2021-05-30] MEDS: Chlorhexidine Rinse 15 ML MOUTHWASH MM SCH ×2 (08:36→20:43)
[2021-05-30] MEDS: Pantoprazole 40 MG VIAL IVP SCH (08:36)
[2021-05-30] MEDS: PrismaSATE BGK 4/2.5 5,000 ML CRRT SCH ×3 (10:18)
[2021-05-30] MEDS ORDERED: 0.9 % Sodium Chloride 250 ML IVC PRN (10:26)
[2021-05-30] MEDS ORDERED: *HR* Heparin 10,000 UNIT/10 ML VIAL IV PRN (10:26)
[2021-05-30] MEDS ORDERED: 0.9 % Sodium Chloride 1,000 ML PRIME SCH (10:30)
[2021-05-30] MEDS ORDERED: Albumin 25% 25gram/100mL 25 GM/100 ML IV.SOLN ONE (10:51)
[2021-05-30] MEDS: Albumin 25% 25gram/100mL 25 GM/100 ML IV.SOLN IVPB PRN ×2 (11:10→13:10)
[2021-05-30] MEDS: Cisatracurium 200 MG in 0.9 % Sodium Chloride 180 ML IVC SCH (12:17)
[2021-05-30 16:42] LABS: ABG Base Excess 5 mEq/L (-2 to 3); ABG HCO3 33 mEq/L (21-27); ABG Oxygen Saturation 87 % (95-98); ABG PCO2 67 mmHg (35-45); ABG PO2 60 mmHg (85-104); ABG TCO2 35 mEq/L (20-26); Blood Gas Modality ASSIST CONTROL; Blood Gas VT 380 cc
[2021-05-30 20:26] LABS: ABG Base Excess 4 mEq/L (-2 to 3); ABG HCO3 31 mEq/L (21-27); ABG Oxygen Saturation 97 % (95-98); ABG PCO2 59 mmHg (35-45); ABG PH 7.33 pH Units (7.32-7.45); ABG PO2 102 mmHg (85-104); ABG TCO2 33 mEq/L (20-26); Blood Gas VT 380 cc
[2021-05-30] MEDS: Furosemide 240 MG in 0.9 % Sodium Chloride 96 ML IVC SCH (20:42)
[2021-05-30] MEDS: Scopolamine Patch 1.5 MG PATCH.TD72 TD SCH (23:48)
[2021-05-31] MEDS: Artificial Tears SOLN 15 ML BOTTLE BOTH EYES SCH ×6 (04:12→23:47)
[2021-05-31 04:13] LABS: Basophils % 0.3 %; Eosinophils # 0.2 K/mcL (0.0-0.6); Eosinophils % 2.2 %; Hematocrit 28.5 % (35.3-44.9); Immature Granulocytes % 0.4 % (0-4); Lymphocytes # 0.6 K/mcL (0.6-4.6); Lymphocytes % 7.6 %; Mean Corpuscular HGB Conc 31.6 g/dL (31.6-35.5); Mean Corpuscular Hemoglobin 28.4 pg (28.0-33.3); Mean Corpuscular Volume 89.9 fL (83.0-100.0); Mean Platelet Volume 12.3 fL (9.4-12.4); Neutrophils # 5.6 K/mcL (1.6-8.9); Platelet Count 141 K/mcL (140-400); Red Blood Count 3.17 M/mcL (3.82-4.97); Red Cell Distribution Width 16.7 % (11.5-14.5); Segmented Neutrophils % 75.5 %; White Blood Count 7.4 K/mcL (4.3-11.1)
[2021-05-31 04:23] LABS: VBG Ionized Calcium 1.11 mmol/L (1.15-1.35)
[2021-05-31 04:31] LABS: Calcium 8.5 mg/dL (8.6-10.3); Potassium 4.2 mEq/L (3.5-5.1)
[2021-05-31 04:32] LABS: Magnesium 1.6 mg/dL (1.6-2.6); Phosphorous 5.7 mg/dL (2.7-4.5)
[2021-05-31] MEDS: *HR* Heparin 5,000 UNIT/ML VIAL SQ SCH ×3 (04:41→21:59)
[2021-05-31] MEDS: Insulin LISPRO 300 UNITS/3 ML VIAL SUBQ SCH ×3 (04:41→17:00)
[2021-05-31 05:48] LABS: ABG Base Excess 4 mEq/L (-2 to 3); ABG HCO3 31 mEq/L (21-27); ABG Oxygen Saturation 92 % (95-98); ABG PCO2 59 mmHg (35-45); ABG PH 7.33 pH Units (7.32-7.45); ABG PO2 70 mmHg (85-104); ABG TCO2 33 mEq/L (20-26); Blood Gas Modality ASSIST CONTROL; Blood Gas VT 380 cc
[2021-05-31] MEDS: D10% in Water 500 ML IVC SCH ×2 (07:11→18:16)
[2021-05-31] MEDS: PrismaSATE BGK 4/2.5 5,000 ML CRRT SCH ×3 (07:12)
[2021-05-31] MEDS: Chlorhexidine Rinse 15 ML MOUTHWASH MM SCH ×2 (07:39→19:54)
[2021-05-31] MEDS: Pantoprazole 40 MG VIAL IVP SCH (07:39)
[2021-05-31] MEDS: Nystatin POWDER 30 GM BOTTLE TP SCH ×3 (07:40→19:56)
[2021-05-31] MEDS: Piperacillin/Tazobactam 3.375 GM in 0.9 % Sodium Chloride Mini Bag 100 ML IVPB SCH ×2 (08:01→19:54)
[2021-05-31] MEDS: Norepinephrine 8 MG/258 ML IV.SOLN IVC SCH ×2 (10:38→18:45)
[2021-05-31] MEDS: FentaNYL (PF) 2,500 MCG/50 ML IV.SOLN IVC SCH (11:00)
[2021-05-31 11:53] LABS: VBG Ionized Calcium 1.15 mmol/L (1.15-1.35)
[2021-06-01] MEDS: FentaNYL (PF) 2,500 MCG/50 ML IV.SOLN IVC SCH ×2 (01:20→17:35)
[2021-06-01] MEDS ORDERED: Isovue-370 500 ML BOTTLE IVP ONE (01:57)
[2021-06-01] MEDS: Artificial Tears SOLN 15 ML BOTTLE BOTH EYES SCH ×4 (04:00→16:05)
[2021-06-01 04:32] LABS: VBG Ionized Calcium 1.17 mmol/L (1.15-1.35)
[2021-06-01 04:34] LABS: Hematocrit 30.1 % (35.3-44.9); Hemoglobin 9.3 g/dL (11.5-15.4); Mean Corpuscular HGB Conc 30.9 g/dL (31.6-35.5); Mean Corpuscular Hemoglobin 27.7 pg (28.0-33.3); Mean Corpuscular Volume 89.6 fL (83.0-100.0); Mean Platelet Volume 12.1 fL (9.4-12.4); Platelet Count 127 K/mcL (140-400); Red Blood Count 3.36 M/mcL (3.82-4.97); Red Cell Distribution Width 16.8 % (11.5-14.5)
[2021-06-01 04:54] LABS: Albumin/Globulin Ratio 1.1 (1.1-2.2); Bilirubin,Total 0.6 mg/dL (0.3-1.0); Calcium 8.7 mg/dL (8.6-10.3); Globulin 2.7 g/dL (2.4-3.5); Phosphorous 6.1 mg/dL (2.7-4.5); Potassium 4.1 mEq/L (3.5-5.1); Total Protein 5.7 g/dL (6.4-8.9)
[2021-06-01] MEDS: *HR* Heparin 5,000 UNIT/ML VIAL SQ SCH ×2 (05:33→15:05)
[2021-06-01] MEDS: Insulin LISPRO 300 UNITS/3 ML VIAL SUBQ SCH ×3 (05:43→12:24)
[2021-06-01 05:49] LABS: ABG Base Excess 2 mEq/L (-2 to 3); ABG HCO3 31 mEq/L (21-27); ABG Oxygen Saturation 89 % (95-98); ABG PCO2 68 mmHg (35-45); ABG PH 7.27 pH Units (7.32-7.45); ABG PO2 67 mmHg (85-104); ABG TCO2 33 mEq/L (20-26); Blood Gas VT 380 cc
[2021-06-01] MEDS: Furosemide 240 MG in 0.9 % Sodium Chloride 96 ML IVC SCH (07:46)
[2021-06-01] MEDS: Piperacillin/Tazobactam 3.375 GM in 0.9 % Sodium Chloride Mini Bag 100 ML IVPB SCH (07:57)
[2021-06-01] MEDS: Chlorhexidine Rinse 15 ML MOUTHWASH MM SCH (07:57)
[2021-06-01] MEDS: Pantoprazole 40 MG VIAL IVP SCH (07:57)
[2021-06-01] MEDS: Nystatin POWDER 30 GM BOTTLE TP SCH ×2 (08:23→15:04)
[2021-06-01] MEDS: PrismaSATE BGK 4/2.5 5,000 ML CRRT SCH ×3 (12:24)
[2021-06-01] MEDS ORDERED: *HR* Heparin 5,000 UNIT/ML VIAL IVP PRN (12:36)
[2021-06-01] MEDS ORDERED: 0.9 % Sodium Chloride 1,000 ML PRIME SCH (12:45)
[2021-06-01] MEDS ORDERED: PrismaSATE BGK 4/2.5 5,000 ML CRRT SCH ×2 (12:45)
[2021-06-01 16:50] VITALS: TEMP 99.3
[2021-06-01 17:32] VITALS: O2SAT 93
[2021-06-01] MEDS: Norepinephrine 8 MG/258 ML IV.SOLN IVC SCH (17:34)
[2021-06-01] MEDS ORDERED: Ondansetron 4 MG/2 ML VIAL IVP PRN (17:53)
[2021-06-01] MEDS ORDERED: Albuterol 2.5 MG/3 ML NEBULIZER IH PRN (17:53)
[2021-06-01] MEDS ORDERED: *HR* LORazepam 1 MG TABLET PO PRN (17:53)
[2021-06-01] MEDS ORDERED: *HR* FentaNYL (PF) 100 MCG/2 ML VIAL IVP PRN (17:55)
[2021-06-01 18:03] VITALS: BP 93/60; PULSE 88
[2021-06-01] MEDS ORDERED: *HR* LORazepam 2 MG/ML VIAL ONE (18:05)
[2021-06-01] MEDS ORDERED: *HR* LORazepam 2 MG/ML VIAL IVP PRN (18:06)
== END 2021-06-01 18:36 | disposition expired | DRG 207 ==
LOC: ICNU → OBSVTOIN 05-27 02:10
PROVIDERS: ADMIT Internal Medicine; ATTEND Internal Medicine